=== PATIENT | male | born 1930 | race Hispanic/Latino ===

== ENCOUNTER 2019-05-13 09:36 | Inpatient (IN) | payer OTHER ==
[~2019-05-13] VITALS: Ht 165.1 cm; Wt 65.3 kg
[~2019-05-13 09:36] MED LIST: ASA81 MG PO; BENAZEPRIL-HCT1 EA11 PO; COUMADIN5 MG PO
--- NOTE | 2019-05-13 11:28 | Diagnostic Imaging Report ---
Examination: Single AP view of the chest. COMPARISON: 03/04/2011 INDICATION: Weakness, jaundice DISCUSSION: Electronic device projects over the left midlung. Leads terminate over the cardiac shadow near the apex. Lungs are well-inflated with mild prominence of the interstitium, likely age-related fibrotic change. No consolidation, sizable effusion, or pneumothorax. Tortuous thoracic aorta with atherosclerotic calcification. Normal heart size. Multiple right axillary surgical clips. Impression: No acute cardiopulmonary abnormality. Mild interstitial prominence likely reflects age-related fibrotic changes. Signed by: Dr. Erick Metcalf M.D. on 05/13/2019 11:25 AM
[2019-05-13 11:54] LABS: BILIRUBIN,URINE LARGE (NEGATIVE); KETONES,URINE NEGATIVE (NEGATIVE); LEUKOCYTE ESTERASE ,URINE NEGATIVE (NEGATIVE); NITRITE,URINE NEGATIVE (NEGATIVE); PROTEIN,URINE DIPSTICK 1+ (NEGATIVE); URINE UROBILINOGEN 1 mg/dL (0.2 - 1)
[2019-05-13 11:54] LABS: BASOPHILS % 0.2 % (0.0-1.0); EOSINOPHILS # (AUTO) 0.1 (0.0-0.4); EOSINOPHILS % 0.6 % (0.0-6.0); HEMATOCRIT 30.9 % (38.2-49.6); HEMOGLOBIN 10.6 g/dL (14.0-18.0); LYMPHOCYTES # (AUTO) 0.8 (1.0-3.2); LYMPHOCYTES % 9.1 % (18.0-39.1); MEAN CORPUSCULAR HEMOGLOBIN 30.1 pg (28-32); MEAN CORPUSCULAR HGB CONC 34.3 g/dL (31-35); MEAN CORPUSCULAR VOLUME 87.8 fL (81-99); MONOCYTES # (AUTO) 0.8 (0.2-0.8); MONOCYTES % 9.1 % (4.4-11.3); NEUTROPHILS # (AUTO) 7.3 (2.1-6.9); NEUTROPHILS % 80.2 % (38.7-80.0); PLATELET COUNT 247 x10e3/uL (140-360); RED BLOOD COUNT 3.52 x10e6/uL (4.3-5.7); RED CELL DISTRIBUTION WIDTH 18.8 % (11.7-14.4)
[2019-05-13 12:05] LABS: COLOR,URINE AMBER (YELLOW)
[2019-05-13 12:06] LABS: CLARITY,URINE HAZY (CLEAR)
[2019-05-13 12:16] LABS: BACTERIA,URINE MODERATE /HPF; EPITHELIAL CELLS,URINE FEW /LPF; MUCUS,URINE FEW (RARE)
[2019-05-13 12:36] LABS: ALBUMIN 2.6 g/dL (3.5-5.0); ALBUMIN/GLOBULIN RATIO 0.8 (0.8-2.0); ANION GAP 16.3 mmol/L (8-16); CALCIUM 9.6 mg/dL (8.4-10.2); CREATININE, SERUM 2.31 mg/dL (0.72-1.25); POTASSIUM 3.3 mmol/L (3.5-5.1)
[2019-05-13] MEDS ORDERED: ONDANSETRON HCL INJ 2MG/ML 2ML 2 MG/ML VIAL IV PRN (14:30)
[2019-05-13] MEDS ORDERED: PHYTONADIONE 10 MG/ML AMP PO NR (14:30)
--- OUTSIDE RECORDS SUMMARY | 2019-05-13 14:36 | XMS REPORT ---
[facility] Address Unknown Phone Unavailable Care Team Providers Care Controlled Area Checker Name Role Phone Solange GALLEGOS Unavailable Unavailable Problems This patient has no known problems. Allergies, Adverse Reactions, Alerts This patient has no known allergies or adverse reactions. Medications This patient has no known medications. Results Test Description Test Time Test Comments Text Results Atomic Results Result Comments CHEST SINGLE (NOT PORTABLE) 2019-05-13 11:23:00 [place] [id number] Patient Name: CHLOÉ VACA MR #: [id number] : 1930 Age/Sex: 88/M Req #: [id number] Adm Physician: Ordered by: DONI GALLEGOS MD Report #: [id number] Location: ER Room/Bed: Procedure: [id number] DX/CHEST SINGLE (NOT PORTABLE) Exam Date: 05/13/19 Exam Time: 1105 REPORT STATUS: Signed Examination: Single AP view of the chest. COMP ARISON: 03/04/2011 INDICATION: Weakness, jaundice DISCUSSION: Electronic device projects over the left midlung. Leads terminate over the cardiac shadow near the apex. Lungs are well-inflated with mild prominence of the interstitium, likely age-related fibrotic change. No consolidation, sizable effusion, or pneumothorax. Tortuous thoracic aorta with atherosclerotic calcification. Normal heart size. Multiple right axillary surgical clips. Impression: No acute cardiopulmonary abnormality. Mild interstitial prominence likely reflects age-related fibrotic changes. Signed by: Dr. Jean Thomas M.D. on 05/13/2019 11:25 AM Dictated By: JEAN THOMAS MD 24 Transcribed By: ARNOL on 05/13/191124 COPY TO: DONI GALLEGOS MD
--- NOTE | 2019-05-13 14:46 | Diagnostic Imaging Report ---
EXAMINATION: CT of the abdomen and pelvis without contrast. TECHNIQUE: Spiral CT images of the abdomen and pelvis were performed from the lung bases to the lesser trochanters. No intravenous contrast was given per referring physician request. Coronal and sagittal reformatted images were obtained. COMPARISON: None CLINICAL HISTORY:History of non-Hodgkin's lymphoma, jaundice DISCUSSION: ABSENCE OF INTRAVENOUS CONTRAST DECREASES SENSITIVITY FOR DETECTION OF FOCAL LESIONS AND VASCULAR PATHOLOGY. ABDOMEN/PELVIS: LOWER THORAX: Electronic cardiac device leads terminate in the region of the interventricular septum at the cardiac apex. Atherosclerotic coronary artery calcifications. No pericardial effusion. Patchy perivascular groundglass opacities in the lower lobes left greater than right. Trace left pleural effusion. HEPATOBILIARY:No focal hepatic lesion. Moderate intrahepatic biliary ductal dilatation with abrupt cut off of the common hepatic duct (series 2 image 29) status post cholecystectomy. SPLEEN: No splenomegaly. Coarse splenic versus left hemidiaphragmatic calcification. PANCREAS: The body and tail are unremarkable. Head and uncinate process are poorly visualized. ADRENALS: Adrenals are poorly visualized. KIDNEYS/URETERS: Moderate bilateral hydronephrosis. No calculi. No gross renal mass lesion. PELVIC ORGANS/BLADDER: The urinary bladder is incompletely distended but otherwise unremarkable. Prostate and seminal vesicles appear normal. PERITONEUM/RETROPERITONEUM: Small volume perihepatic ascites average internal attenuation 10-15 Hounsfield units. LYMPH NODES: Conglomerate retroperitoneal mass is difficult to accurately measure. Dimensions are at least 14 cm craniocaudal x 14 cm transverse x 7.5 cm AP. The mass completely encases the suprarenal and infrarenal abdominal aorta and extends caudally to the level of the proximal common iliac arteries. The mass is inseparable from the right kidney and extends anteriorly/cranially to the level of the nella hepatis. The aorta is visible secondary to extensive atherosclerotic calcifications. The IVC is not visualized in the absence of intravenous contrast. Bulky mesenteric lymphadenopathy is also noted. VESSELS: As above. GI TRACT: The large bowel shows no distention or wall thickening. Gas and fecal material is noted throughout. No small bowel dilatation to suggest obstruction. BONES AND SOFT TISSUES: No focal soft tissue abnormalities. No osseous destructive lesions. Multilevel degenerative disc disease and facet arthropathy of the lumbar spine. IMPRESSION: Very large retroperitoneal mass presumably represents conglomerate lymphadenopathy in this patient with reported history of non-Hodgkin lymphoma. The mass completely encases the abdominal aorta and results in moderate intrahepatic biliary ductal dilatation secondary to occlusion or compression of the common hepatic duct, as well as moderate bilateral hydronephrosis secondary to ureteral compression. Evaluation of the IVC and other vascular structures is limited without intravenous contrast. Mesenteric lymphadenopathy also in keeping with history of lymphoma. Groundglass opacities in the lower lung zones may reflect aspiration or multifocal pneumonia in the appropriate clinical setting. Trace left pleural effusion.. Signed by: Dr. Erick Metcalf M.D. on 05/13/2019 2:42 PM
[2019-05-13] MEDS ORDERED: TORSEMIDE10 MG PO (15:10)
[2019-05-13] MEDS ORDERED: CARVEDILOL6.25 MG PO (15:10)
--- NOTE | 2019-05-13 15:30 | NUR ---
PT RECEIVED FROM ER. AAOX3. FAMILY AT BEDSIDE. PT HAD BLEEDING FROM RIGHT HAND SKIN TEAR. DRESSING APPLIED. EDUCATED PT ABOUT FALL PRECAUTIONS. PT VERBALIZED UNDERSTANDING. BED ALARM IS ON. CALL LIGHT WITH IN EASY REACH. INSTRUCTED PT TO CALL FOR ANY NEEDS. PT DENIES NEEDS AT THIS TIME.
[2019-05-13 15:57] VITALS: BP 120/56
[2019-05-13 16:00] VITALS: BP 120/56
[2019-05-13 16:01] LABS: PARTIAL THROMBOPLASTIN TIME 124.7 seconds (23.8-35.5); PROTHROMBIN TIME > 100.0 seconds (11.9-14.5)
[2019-05-13] MEDS ORDERED: PHYTONADIONE 5 MG TAB PO NR (16:15)
--- NOTE | 2019-05-13 16:15 | NUR ---
RAFFAELE DONOVAN AT BEDSIDE. INFORMED PT AND PTT LEVELS.
--- NOTE | 2019-05-13 16:52 | NUR ---
CHANGED DIET NPO TO CARDIAC PER RAFFAELE DONOAVN
[2019-05-13] MEDS ORDERED: CARVEDILOL 3.125 MG TAB PO SCH (17:00)
[2019-05-13] MEDS ORDERED: POTASSIUM BICARBONATE/CIT AC 20 MEQ TABLET.EFF PO NR (17:30)
[2019-05-13] MEDS ORDERED: MORPHINE SULFATE 2 MG/ML SYR 1ML IV PRN (17:30)
--- NOTE | 2019-05-13 19:00 | NUR ---
BEDSIDE SHIFT REPORT GIVEN TO THE ASSIGNMENT DESK ASSISTANT RN. PT FAMILY AT BEDSIDE. PT DENIED FURTHER NEEDS.
--- NOTE | 2019-05-13 19:10 | NUR ---
Report received and walking rounds complete. Pt AO and resting in bed and no apparent distress. All safety measures ensured and pt call jay near. Pt at bedside and to stay overnight.
[2019-05-13 19:15] VITALS: BP 109/57
--- NOTE | 2019-05-13 19:34 | NUR ---
[employer] REGARDING PLASMA ORDER TO CONFIRM. ORDER IS ACTIVE BUT NOT SEEN IN [facility]AR. WAITING FOR THE RESPONSE.
[2019-05-13 20:00] VITALS: BP 109/57
[2019-05-13] MEDS: CARVEDILOL 3.125 MG TAB PO SCH (20:11)
[2019-05-13] MEDS ORDERED: SODIUM CHLORIDE 0.9% 250ML 250 ML ONE (22:58)
--- NOTE | 2019-05-13 23:25 | NUR ---
1 unit FFP started. Pt has no complaints, vitals stable. Will continue to monitor.
[2019-05-13 23:54] VITALS: BP 109/54
[2019-05-14] VITALS (7 sets, daily range): BP systolic 113–135; BP diastolic 55–70
--- NOTE | 2019-05-14 00:21 | History and Physical ---
PRIMARY CARE PHYSICIAN: Mark Camara DO at [facility] [place]. CHIEF COMPLAINT: Jaundice and generalized weakness. HISTORY OF PRESENT ILLNESS: This is an 88-year-old male who presented with a past medical history of atrial fibrillation, hypertension, and Hodgkin's lymphoma, presented to the ER with complaints of generalized weakness and extreme jaundice. He reports that he has been feeling sick for the past week, as they were moving to close to his daughter's house due to some gas leak at their house. He reports having poor appetite, nausea, but no vomiting, mild abdominal diffuse, abdominal pain and daughter reports noticing his jaundice about 6 days ago. He denies any chest pain, any shortness of breath, fever, chills, hematuria, melena, or change in level of consciousness. Yesterday, he was walking at the door and he bumped himself on the door to his right upper extremity where he noted excessive bleeding, so he went to his PCP, who saw him and advised him to go to the ER for further workup. Of note, the daughter reports that is his oncologist at [facility], who has advised them of his increasing intraabdominal mass and no further treatment was advised. PAST MEDICAL HISTORY: 1. Hodgkin's lymphoma. 2. Hypertension. 3. Atrial fibrillation. PAST SURGICAL HISTORY: Prostate procedure and pacemaker. FAMILY MEDICAL HISTORY: Father had heart disease. Mother of a car accident at age of 48. SOCIAL HISTORY: He denies tobacco use. Drinks alcohol occasionally and denies illicit drug use. He lives with his next door to his daughter and is a retired independent with walking. REVIEW OF SYSTEMS: GENERAL: Appears to be in no distress. HEENT: Jaundiced. No trauma to the head. LUNGS: No shortness of breath or cough. CARDIOVASCULAR: No chest pain. No palpitations. GI: Soft and nontender. Complains of nausea, but no vomiting. No melena. NEUROLOGIC: Alert and oriented. MUSCULOSKELETAL: General weakness. SKIN: Jaundiced. PHYSICAL EXAMINATION: VITAL SIGNS: Temperature 95.0, pulse is 50, blood pressure 120/56, pulse O2 is 97% on room air. GENERAL: He appears to be in no acute distress. HEENT: Normocephalic, atraumatic. Generalized jaundice. LUNGS: Decreased breath sounds, especially in the lower lobes. CARDIOVASCULAR: Rate and rhythm normal. GI: Abdomen is soft and nontender. NEURO: Alert, awake, and oriented x3. MUSCULOSKELETAL: Generalized weakness. Active ROM. SKIN: Severely jaundiced. LABORATORY DATA: WBC 9.06, hemoglobin 10.6, hematocrit 30.9, and platelets 247. Sodium 130, potassium 3.3, chloride 90, BUN is 55, creatinine is 2.31, estimated GFR is 27, AST is 207, total bilirubin is 34.5, AST is 207, ALT is 124, alkaline phosphate is 804, albumin is 2.6 and PT is greater than 100. INR test could not be performed due to high levels. APTT is 124.7. Urine is fredo color with some protein and urine rbc's 11 to 20, wbc's 6-10, moderate bacteria and few mucus. IMAGING: Chest x-ray, no acute cardiopulmonary abnormality, mild interstitial prominence likely reflects age-related fibrotic changes. CT abdomen and pelvis showed a very large retroperitoneal mass, presumably lymphadenopathy with a history of non-Hodgkin's lymphoma, also shows ground-glass opacities in the lower lung zones may reflect aspiration or a multifocal pneumonia. IMPRESSION AND PLAN: 1. Severe jaundice, likely due to his intraabdominal mass affecting the hepatic area. 2. Dehydration with hypokalemia and hyponatremia. We will start him on a cardiac diet and repeat labs. 3. Hypokalemia, potassium of 3.3. We will replace potassium and repeat in a.m. 4. Supratherapeutic INR. Unable to detect INR level, was given vitamin K in the ER. We will stop Coumadin treatment and 1 unit of FFP is ordered in the ER. We will transfuse and recheck labs in a.m. 5. Hypertension, now stable. We will resume his carvedilol at a lower dose of 3.125. 6. Acute kidney injury, questionable chronic kidney disease or may be due to his poor p.o. intake. We will repeat labs in a.m. Creatinine today is 2.3 and we will consider Nephrology consult if his creatinine continues to worsen. 7. History of atrial fibrillation. We will continue the carvedilol. Rate is controlled. 8. History of non-Hodgkin's lymphoma 7 years ago. Follow up as outpatient with his oncologist. 9. Elevated LFTs and total bilirubin, most likely due to the mass. We will continue to monitor. 10. Hypoalbuminemia, 2.6, likely due to poor p.o. intake. We will monitor as well. 11. Deep vein thrombosis prophylaxis. We will hold Coumadin level as his INR is undetectable. Discussed with daughters and regarding poor prognosis and worsening mass. They agree with hospice care and will consult Case Management for hospice to be set up and further recommendations to follow. Dictated by KARIE Cosme Rubyching Nghia Patel MD MY/MODL /[id number] The patient was seen and examined on 05/13/2019, family elected to proceed with home hospice. Agree with the findings and plan as documented by KARIE Baumann. LEYDI
[2019-05-14 06:53] LABS: ALBUMIN 2.5 g/dL (3.5-5.0); ALBUMIN/GLOBULIN RATIO 0.9 (0.8-2.0); ANION GAP 19.2 mmol/L (8-16); CALCIUM 9.5 mg/dL (8.4-10.2); CREATININE, SERUM 1.85 mg/dL (0.72-1.25); POTASSIUM 3.2 mmol/L (3.5-5.1)
--- NOTE | 2019-05-14 07:15 | NUR ---
received am report from nurse and morning rounds done. pt is alert resting in bed, no s/s of distress. skin is jaundiced, there is a skin tear on the right forearm, dressing is c/d/i, will monitor bleeding. family is at the bedside
--- NOTE | 2019-05-14 07:24 | NUR ---
Bedside report and walking rounds complete with day shift RN.
[2019-05-14] MEDS: CARVEDILOL 3.125 MG TAB PO SCH ×2 (09:00→20:21)
[2019-05-14 09:19] LABS: BASOPHILS % 0.1 % (0.0-1.0); EOSINOPHILS % 0.5 % (0.0-6.0); HEMATOCRIT 28.9 % (38.2-49.6); HEMOGLOBIN 9.9 g/dL (14.0-18.0); LYMPHOCYTES # (AUTO) 0.6 (1.0-3.2); LYMPHOCYTES % 7.4 % (18.0-39.1); MEAN CORPUSCULAR HEMOGLOBIN 29.8 pg (28-32); MEAN CORPUSCULAR HGB CONC 34.3 g/dL (31-35); MONOCYTES # (AUTO) 0.8 (0.2-0.8); MONOCYTES % 9.3 % (4.4-11.3); NEUTROPHILS # (AUTO) 6.7 (2.1-6.9); NEUTROPHILS % 81.5 % (38.7-80.0); PLATELET COUNT 214 x10e3/uL (140-360); RED BLOOD COUNT 3.32 x10e6/uL (4.3-5.7); RED CELL DISTRIBUTION WIDTH 18.6 % (11.7-14.4)
[2019-05-14] MEDS ORDERED: TUMS200 MG PO (09:30)
[2019-05-14] MEDS: FAMOTIDINE 20 MG TAB PO SCH ×2 (09:30→17:36)
[2019-05-14] MEDS ORDERED: POTASSIUM CHLORIDE 10MEQ EA PO NR (10:00)
--- NOTE | 2019-05-14 10:09 | NUR ---
Met with pt and his daughter, Maritza Pretty [phone]. Discussed hospice and gave them choice letter with names of companies. Notified there are many companies, and to talk with family for choice. Briefly explained hospice, and notified them liaison would meet with them to explain more deeply and answer questions. Verbalized understanding and want to meet with family to make choice. Pt lives in apartment with his that is directly next door to his daughter Maritza. Maritza stated family are near and willing to help. CM updated pt nurse Carissa. Family are to notify pt nurse when they decided, and CM will be notified and assist. Family may make decision today or tomorrow. Pt is Lanie "Rohit" Abhijeet. Another daughter is Brittany Candelario [phone]. Pt has no DME, and has not needed any prior to this hospitalization.
[2019-05-14] MEDS ORDERED: LACTULOSE SYRUP 20 GM/30 ML UDC PO NR (16:00)
[2019-05-14 16:21] LABS: INR 5.24
--- NOTE | 2019-05-14 17:30 | Progress Note ---
DATE: 05/14/2019 CHIEF COMPLAINT: Generalized weakness, constipation, and jaundice. SUBJECTIVE: In bed with no acute distress, no shortness of breath, family at bedside and complained of agitation and irritability during the night and not able to sleep and requesting something for insomnia and constipation. He denies any chest pain, nausea, vomiting, shortness of breath, fever, or chills. PHYSICAL EXAMINATION: VITAL SIGNS: Temperature 96.2, pulse is 53, respirations 17, blood pressure 113/55, pulse ox 96% on room air. GENERAL: No acute distress, jaundiced. HEENT: Normocephalic and atraumatic. Sclera, jaundice. LUNGS: Clear to auscultation. CARDIOVASCULAR: Regular rate and rhythm. GI: Abdomen is soft and nontender. NEURO: Alert, awake, oriented x3. However, family reports agitation overnight. MUSCULOSKELETAL: Generalized weakness, but moves all extremities. SKIN: Multiple bruising on upper extremities and severe jaundice. LABORATORY DATA: WBC 8.2, hemoglobin 9.9, hematocrit is 28.9, and platelets 214. Sodium is 131, potassium 3.2, BUN 58, creatinine 1.85, estimated GFR is 35, total bilirubin 33.1, AST 169, ALT 104, alkaline phosphate is 763, total protein is 5.4, albumin 2.5. PT, INR are pending for today. IMPRESSION AND PLAN: 1. Generalized weakness due to worsening intraabdominal mass. Also, due to dehydration and poor p.o. intake. We will continue to encourage p.o. intake. 2. Jaundice with elevated LFTs and total bilirubin, likely due to worsening mass. 3. Hypokalemia, will replace and recheck in a.m. Supratherapeutic INR, was given 1 unit of FFP and vitamin K yesterday pending PT, INR levels today. 4. Hypertension, now stable. Resume dose of carvedilol b.i.d. 5. Acute kidney injury, creatinine was 2.3 yesterday and is now 1.85. We will hold nephrotoxic medications and repeat labs in a.m. We will continue to monitor. 6. History of atrial fibrillation, rate controlled, and on beta blockers. 7. History of non-Hodgkin's lymphoma seven years ago. Follow up with Oncology as an outpatient. 8. Agitation overnight, we will order Ativan as needed at bedtime. 9. Debility due to worsening cancer, we will consult PT for eval and treatment. Case Management has been consulted for hospice care. 10. Deep vein thrombosis prophylaxis. INR is supratherapeutic. We will continue to monitor. Dictated by KARIE Cosme Yiching Nghia Patel MD MY/MODL /[id number] Seen and examined, waiting for home hospice to be set up. Agree with the findings and plan as documented by KARIE Baumann. SHANTD
[2019-05-14] MEDS: LORAZEPAM 0.5 MG TAB PO PRN (17:36)
--- NOTE | 2019-05-14 19:29 | NUR ---
PT IS RESTING IN BED WITH FAMILY AT BEDSIDE. RESPIRATION IS EVEN AND UNLABORED, NO DISTRESS NOTED. BED IN THE LOWEST POSITION, LOCKED, AND CALL LIGHT WITHIN REACH. WILL CONTINUE TO MONITOR.
[2019-05-15] VITALS (7 sets, daily range): BP systolic 106–129; BP diastolic 51–70
[2019-05-15] MEDS: FAMOTIDINE 20 MG TAB PO SCH ×3 (07:30→18:24)
[2019-05-15] MEDS: CARVEDILOL 3.125 MG TAB PO SCH ×2 (09:00→19:42)
--- NOTE | 2019-05-15 12:20 | NUR ---
PT SUCTION WITH ANNE MARIE. SM AMT SUCTIONED
--- NOTE | 2019-05-15 13:07 | NUR ---
FAMILY SIGNED CHOICE FOR [facility], CALLED HOSPICE REP AND THEY STATED THEY ARE MEETING WITH FAMILY AT 230PM TODAY. EDUCATED ABOUT IMM, SIGNED, FILED IN CHART, WITH COPY LEFT WITH FAMILY AT BEDSIDE.
--- NOTE | 2019-05-15 17:59 | Progress Note ---
DATE: 05/15/2019 CHIEF COMPLAINT: Generalized weakness and jaundice. SUBJECTIVE: The patient is much more lethargic today, opens eyes to verbal stimuli. Family at bedside. Denies any nausea, vomiting, abdominal pain, fever, or chills. Family reports that they are working on hospice and home arrangements. Anticipate discharge tomorrow. PHYSICAL EXAMINATION: VITAL SIGNS: Temperature 97, pulse is 67, respirations 20, blood pressure 112/55, pulse ox is 96%. GENERAL: He is resting in bed and does not appear to be in distress. HEENT: Normocephalic, atraumatic, and jaundiced. LUNGS: Wheezing and rhonchi heard. CARDIOVASCULAR: Regular rate and rhythm. GI: Abdomen is soft and nontender. NEURO: Lethargic with altered mental status. MUSCULOSKELETAL: Moves all extremities. SKIN: Multiple bruising in the upper extremities and jaundice. LABORATORY DATA: Labs as of yesterday. INR was 5.24 and PT was 49.0. All others reviewed. IMPRESSION: 1. Altered mental status and lethargy due to intraabdominal mass. Hospice has been arranged. Continue with comfort care. 2. Hypertension, now hypotensive. We will monitor closely. 3. History of atrial fibrillation. Rate is controlled. 4. Cough, possibly aspiration. Family advised to keep head of bed elevated and suction as needed. 5. History of non-Hodgkin's lymphoma 7 years ago, now in remission. 6. Deep vein thrombosis prophylaxis is not indicated as INR is elevated. PLAN: Continue comfort care and anticipate discharge home with hospice tomorrow morning. Dictated by KARIE Cosme Cris Patel MD MY/MODL /[id number]
[2019-05-15] MEDS: LORAZEPAM 0.5 MG TAB PO PRN (21:52)
[2019-05-16 00:15] VITALS: BP 140/60
[2019-05-16 03:15] VITALS: BP 106/53
[2019-05-16] MEDS: FAMOTIDINE 20 MG TAB PO SCH (07:30)
[2019-05-16 07:42] VITALS: BP 107/50
[2019-05-16] MEDS: CARVEDILOL 3.125 MG TAB PO SCH (08:21)
--- NOTE | 2019-05-16 08:23 | NUR ---
PT WILL BE PICKED UP BY [facility] AT 9AM
[2019-05-16 09:00] VITALS: BP 107/50
--- NOTE | 2019-05-16 10:50 | NUR ---
Patient discharged home with hospice care, IV access discontinued prior to discharge.
== END 2019-05-16 13:16 | disposition hospice, home (50) | DRG 841 ==
LOC: ER 09:36 → ERHOLD 14:34 → MED/SURG3 15:22
PROVIDERS: ADMIT Internal Medicine; ATTEND Internal Medicine
PROC: 30233L1 Transfusion of Nonautologous Fresh Plasma into Peripheral Vein, Percutaneous Approach (ICD-10-PCS; principal; 2019-05-13)
PROC: 30233K1 Transfusion of Nonautologous Frozen Plasma into Peripheral Vein, Percutaneous Approach (ICD-10-PCS; 2019-05-13)
DX: C85.93 Non-Hodgkin lymphoma, unspecified, intra-abdominal lymph nodes (principal); E87.1 Hypo-osmolality and hyponatremia; N17.9 Acute kidney failure, unspecified; R17 Unspecified jaundice; I48.91 Unspecified atrial fibrillation; I10 Essential (primary) hypertension; Z82.49 Family history of ischemic heart disease and other diseases of the circulatory system; E86.0 Dehydration; E88.09 Other disorders of plasma-protein metabolism, not elsewhere classified; K59.00 Constipation, unspecified; E87.6 Hypokalemia; R53.81 Other malaise; R41.82 Altered mental status, unspecified; R53.83 Other fatigue
CPT/HCPCS: 36415; 71045; 74176; 80053; 81001; 85025; 85610; 85730; 86850; 86900; 99284; J7050; P9017